=== PATIENT | male | born 1975 | race Caucasian/White ===

== ENCOUNTER 2018-02-22 07:05 | Emergency (ER) | payer SELFPAY ==
[2018-02-22 07:35] VITALS: BP 151/79
--- NOTE | 2018-02-22 07:52 | UC ---
Hypertension HPI - HPI Summary HPI Summary: The patient is a 42-year-old male with a history of high blood pressure type 1 diabetes and hyperlipidemia who presents here requesting medicine refills. He recently moved to the area. He has no complaints. - History of Current Complaint Chief Complaint: UCMedRefill Stated Complaint: PRESCRIPTION REFILL (BLOOD PRESSURE MEDS) Time Seen by Provider: 02/22/18 07:31 Hx Obtained From: Patient Onset/Duration: Other - NA Associated Signs And Symptoms: Positive: Negative Current Medications: ACEI - Allergies/Home Medications Allergies/Adverse Reactions: Allergies Allergy/AdvReac Type Severity Reaction Status Date / Time No Known Allergies Allergy Verified 02/22/18 07:35 Home Medications: Home Medications Lisinopril 20 mg PO DAILY 02/22/18 [History Confirmed 02/22/18] Metformin HCl [Metformin HCl ER (Osmotic] 500 mg PO QPM 02/22/18 [History Confirmed 02/22/18] Simvastatin TAB(NF) [Zocor(NF)] 10 mg PO 1700 02/22/18 [History Confirmed ] PMH/Surg Hx/FS Hx/Imm Hx Previously Healthy: Yes - alcoholic in remission Endocrine History: Diabetes, Dyslipidemia Cardiovascular History: Hypertension - Surgical History Surgical History: Yes Surgery Procedure, Year, and Place: L hand s/p accident, L shoulder - Family History Known Family History: Positive: Cardiac Disease, Hypertension, Diabetes - Social History Alcohol Use: None 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 Substance Use Type: Marijuana Substance Use Comment - Amount & Last Used: occ use Smoking Status (MU): Former Smoker Type: Cigarettes Length of Time of Smoking/Using Tobacco: since age 15 Have You Smoked in the Last Year: No When Did the Patient Quit Smoking/Using Tobacco: 2012 Review of Systems All Other Systems Reviewed And Are Negative: Yes Constitutional: Positive: Negative Skin: Positive: Negative Eyes: Positive: Negative ENT: Positive: Negative Respiratory: Positive: Negative Cardiovascular: Positive: Negative Gastrointestinal: Positive: Negative Genitourinary: Positive: Negative Motor: Positive: Negative Neurovascular: Positive: Negative Musculoskeletal: Positive: Negative Neurological: Positive: Negative Psychological: Positive: Negative Physical Exam Triage Information Reviewed: Yes Appearance: Well-Appearing, No Pain Distress, Well-Nourished Vital Signs: Initial Vital Signs Temp 97.7 F 02/22/18 07:29 Pulse 59 02/22/18 07:29 Resp 16 02/22/18 07:29 BP 151/79 02/22/18 07:29 Pulse Ox 98 02/22/18 07:29 Vital Signs Reviewed: Yes Eyes: Positive: Conjunctiva Clear ENT: Positive: Hearing grossly normal. Negative: Nasal congestion, Nasal drainage, Tonsillar swelling, Tonsillar exudate, Dental tenderness, Sinus tenderness Neck: Positive: Supple Respiratory: Positive: No respiratory distress, No accessory muscle use Cardiovascular: Positive: RRR Musculoskeletal: Positive: No Edema Neurological: Positive: Alert, Muscle Tone Normal Psychological Exam: Normal Skin Exam: Normal Hypertension Course/Dx - Differential Dx/Diagnosis Provider Diagnoses: Medicine refill. Hx of HTN, DM, dyslipidemia Discharge - Sign-Out/Discharge Documenting (check all that apply): Patient Departure All imaging exams completed and their final reports reviewed: No Studies - Discharge Plan Condition: Stable Disposition: HOME Prescriptions: Lisinopril 20 mg PO DAILY #30 tablet Metformin ER (NF) 500 mg PO DAILY #30 tab Simvastatin TAB(NF) [Zocor 10 MG (NF)] 10 mg PO DAILY #30 tab Referrals: No Primary Care Phys,NOPCP [Primary Care Provider] - Additional Instructions: med refills see list for local MDs - Billing Disposition and Condition Condition: STABLE Disposition: Home
== END 2018-02-22 07:58 | disposition home or self-care (01) ==
LOC: UCCORT 07:05
DX: I10 Essential (primary) hypertension (principal); E10.8 Type 1 diabetes mellitus with unspecified complications; Z79.84 Long term (current) use of oral hypoglycemic drugs; E78.5 Hyperlipidemia, unspecified; Z76.0 Encounter for issue of repeat prescription; Z87.891 Personal history of nicotine dependence
CPT/HCPCS: 99202; G0463